=== PATIENT | male | born 1995 ===

== ENCOUNTER → 2017-12-18 | Day surgery (SDC) | payer BC ==
[2017-12-18] VITALS (11 sets, daily range): BP systolic 102–142; BP diastolic 59–85
[~2017-12-18] VITALS: Ht 172.7 cm; Wt 71.2 kg
[~2017-12-18] MED LIST: DEXAMETHASONE SOD 4 MG/ML VIAL ONE; DOCU-416 PO; FAMOTIDINE 20 MG TAB PO ONE; LIDOCAINE 2% IV 100 MG/5ML SYR ONE; LIDOCAINE/SOD BICARB 8.4% SYR ID ONE; MEPERIDINE 50 MG/ML SYR ONE; MIDAZOLAM 2 MG/2 ML VIAL IVP PRN; NORMOSOL R SOLN(*) 1000 ML BAG 1,000 ML IV PRN; ONDANSETRON 4 MG/2 ML VIAL ONE; OXYC-854 PO; PROPOFOL EMUL(*) 10MG/ML 20 ML 20 ML ONE; ROCURONIUM BROM 10 MG/ML 5 ML ONE; ROPIVACAINE 0.5% 20 ML VIAL ONE; SUGAMMADEX SOD 200 MG/2 ML SDV ONE; ceFAZolin(*) 2GM/D5W 50ML 50 ML IVPB ONE; fentaNYL CITR 100 MCG/2 ML AMP ONE; fentaNYL CITR 250 MCG/5 ML AMP ONE
[2017-12-18 09:56] LABS: PLATELET COUNT, AUTOMATED 309 K/uL (150-450)
--- NOTE | 2017-12-18 15:23 | Short(Outpt) Discharge Summary ---
Discharge Summary Reason for Hosp/Final Diag: (1) Right inguinal hernia Status: Chronic Hospital Course & Plan: Robotic RIH repair completed without problems. Departure Discharge to: Home, Self Care Discharge Instructions Home Meds Active Scripts Docusate Sodium (COLACE) 100 Mg Capsule, 1 CAP PO BID, #30 CAP 0 Refills TAKE WITH A FULL GLASS OF WATER Prov:JAMA GUNTER MD 12/18/17 Oxycodone Hcl/Acet 5/325 Mg (ENDOCET 5-325 TABLET) 1 Each Tablet, 1-2 TAB PO Q4H Y for PAIN, #30 TAB 0 Refills Prov:JAMA GUNTER MD 12/18/17 Follow up Referrals: General Surgery - 01/05/18 @ Surgery, General with Jama Gunter Md You have a follow up appointment scheduled with Dr. Gunter on 01/05/18, at 11:00am. Diet: Regular Activity: No Heavy Lifting Special Instructions: You may remove the white surgical dressings on 12/20/17, then you can shower. After showering, leave the incisions open to air but leave the steristrips in place until they fall off on their own. Do not immerse the incisions for 2 weeks. JAMA GUNTER MD Dec 18, 2017 15:23
--- NOTE | 2017-12-18 15:28 | Post Operative Progress Note ---
Post Operative Progress Note Date: Dec 18, 2017 Time: 15:23 Surgeon: Jake Dictation number: [id number] Anesthesia: GETA by Dr. Sandhu Pre-Op Diagnosis: RIH Post-Op Diagnosis: JOSE, indirect Findings: Indirect right inguinal hernia No hernia on the left Procedure(s): Robotic RIH repair Specimen Removed:(May be N/A): None Complications: None Fluids: See anesthesia record Estimated Blood Loss: Minimal Date OP Note Dictated: Dec 18, 2017 Time OP Note Dictated: 15:24 JAMA GUNTER MD Dec 18, 2017 15:28
--- NOTE | 2017-12-18 17:26 | OPERATIVE REPORT 1 ---
EVENT DATE: December 18, 2017 SURGEON: Jeramy Joseph MD ANESTHESIOLOGIST: Brendan Sandhu MD ANESTHESIA: General endotracheal anesthesia. PREOPERATIVE DIAGNOSIS Right inguinal hernia. POSTOPERATIVE DIAGNOSIS Indirect right inguinal hernia. PROCEDURE PERFORMED Robotic right inguinal hernia repair with mesh. COMPLICATIONS None. CONDITION Stable. BLOOD LOSS Minimal. INDICATIONS This is a 22-year-old gentleman who presented with a right groin bulge that was getting larger and causing him symptoms, and he was requesting to have it repaired. DESCRIPTION OF PROCEDURE The patient was brought to the operating room and placed supine on the operating table. General endotracheal anesthesia was administered. His abdomen was prepped and draped in a sterile fashion. A timeout was completed. I injected the supraumbilical skin with 0.5% ropivacaine plain. I made a curvilinear frowning face type incision in the superior umbilical rim and dissected through the dermis and subcutaneous fat. I identified the midline fascia and made a vertical incision in the midline fascia. I then grasped the peritoneum with a hemostat and then incised it with a knife. I then placed two interrupted 0 Vicryl sutures transversely through the vertical fascial defect and inserted a 12 mm robotic Fifi-type port through this wound, and secured it in place with sutures. I then filled the abdomen to a pressure of 15 mmHg and inserted the robotic camera. I looked at both groin, and there was definitely a hernia on the right, but none on the left. No other intra- abdominal pathology was discovered. Under direct visualization, I placed an 8 mm port in the right mid abdomen in the about the mid clavicular line and another 8 mm port in the left mid abdomen about the mid clavicular line at the level of the umbilicus. I then docked the robot and then inserted a ProGrasp into the left mid abdominal port and the scissors in the right mid abdominal port. I then scrubbed out and went to the console. I then divided the peritoneum from just medial to the anterior superior iliac spine to the medial portion of the abdomen. I then stripped the peritoneum all the way down, cleaned off the pubic tubercle and Yair ligament as well as the iliopubic tract all the way to the anterior superior iliac spine. I then reduced the hernia sac and it from the cord structures completely. I only went down into the canal for several centimeters, but ended blindly there, so it was easy to reduce and separate. I identified the vas deferens and gonadal vessels , and these were preserved. I then placed a right-sided piece of ProGrip mesh into this space and unfurled it so it laid nice and flat. It covered the whole myopectineal orifice with several centimeters of overlap on all sides. I then sewed the incision in the peritoneum with a running absorbable V-Loc suture. I then removed the robotic instruments, undocked the robot, removed all the ports , desufflated the abdomen, closed with the midline fascia with a figure-of- eight 0 Vicryl suture, and tied all three of these down with good reapproximation of the fascial edges with no remaining fascial defect. The skin at each port site was closed with running 4-0 Monocryl subcuticular suture. The skin was cleaned and dried, and Steri-Strips were applied, followed by sterile surgical dressings. The patient was awakened and extubated in the operating room and transported to the recovery room in stable condition having tolerated the procedure without any apparent problems. LUCERO
== END ==
LOC: OR 00:48
PROVIDERS: ATTEND Surgery
DX: K40.90 Unilateral inguinal hernia, without obstruction or gangrene, not specified as recurrent (principal)
CPT/HCPCS: 36415; 49650; 85025; J1100; J2001; J2175; J2250; J2405; J2704; J2795; J3010; S2900; C1781; J0690